=== PATIENT | female | born 1970 | race African-American/Black ===

== ENCOUNTER 2018-09-14 14:57 | Emergency (ER) | payer SELFPAY ==
[~2018-09-14] VITALS: Ht 154.9 cm; Wt 63.5 kg
--- NOTE | 2018-09-14 15:30 | NUR ---
ED Nurse Note: Pt walked in to ER as reporting a dog bite from [employer]. pt reported pain 5/10 pt aao x4. skin will be assessed when empty room is available.
[2018-09-14 15:43] VITALS: BP 155/96
[2018-09-14] MEDS ORDERED: Tetanus/Diptheria/Pertussis Vaccine 0.5ml Syr IM ONE (15:45)
--- NOTE | 2018-09-14 15:55 | NUR ---
ED Nurse Note: Rt thigh dog bite assessed. teeth bite and swallen noted but no drainage or bleeding noted.
--- NOTE | 2018-09-14 16:07 | Emergency Room Report ---
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 Patient reports that she was buying some dark fluid as a daughter was carried by [employer] employee attacked her and bit her on the right thigh. Incident happened today. Patient is rating the pain 7 out of 10, without radiation, benign tingling and numbness. He has not taken any medication for pain. Patient is not up-to-date on T data. Denies fever, chills, chest pain, SOB, palpitations, abdominal pain and all other associated symptoms. Denies any pus drainage from the site of injury. Allergies: Coded Allergies: No Known Allergies (Unverified , 09/14/18) Patient History Past Medical History: see triage record Past Surgical History: none Pertinent Family History: none Now: No Immunizations: other - Tdap today Reviewed Nursing Documentation: PMH: Agreed; PSxH: Agreed Nursing Documentation-PMH Past Medical History: No History, Except For Hx Hypertension: Yes Review of Systems All Other Systems: negative except mentioned in HPI Physical Exam Vital Signs Date Time Temp Pulse Resp B/P (MAP) Pulse Ox O2 Delivery O2 Flow Rate FiO2 09/14/18 15:08 98.4 90 16 155/96 99 Room Air Sp02 EP Interpretation: reviewed, normal General Appearance: normal inspection, well appearing Head: normocephalic, atraumatic Eyes: bilateral eye normal inspection, bilateral eye PERRL ENT: normal ENT inspection, normal pharynx Neck: normal inspection, supple Respiratory: normal inspection, lungs clear, no rhonchi Cardiovascular #1: normal inspection, regular rate, rhythm, no edema Gastrointestinal: normal inspection, soft Musculoskeletal: back normal, gait/station normal, other - dog bite right lateral thigh Neurologic: normal inspection, alert, oriented x3 Psychiatric: normal inspection Skin: other - dog bite with erythema on right thigh Lymphatic: normal inspection, no adenopathy Medical Decision Making PA Attestation all diagnosis and treatment plans were reviewed and discussed with my supervising physician Dr. 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 Patient reports that she was buying some dark fluid as a daughter was carried by [employer] employee attacked her and bit her on the right thigh. Incident happened today. Patient is rating the pain 7 out of 10, without radiation, benign tingling and numbness. He has not taken any medication for pain. Patient is not up-to-date on T data. Denies fever, chills, chest pain, SOB, palpitations, abdominal pain and all other associated symptoms. Denies any pus drainage from the site of injury. Ddx considered but are not limited to infected dog bite, cellulitis right thigh Vital signs: are WNL, pt. is afebrile H&PE are most consistent with infected dog bite ORDERS: wound clean, Tdap, augmentin, tylenol ED INTERVENTIONS: None required at this time. DISCHARGE: At this time pt. is stable for d/c to home. Will provide printed patient care instructions, and any necessary prescriptions. Care plan and follow up instructions have been discussed with the patient prior to discharge. f/u withpcp for further evaluation. if fever/chills return to ER Last Vital Signs Date Time Temp Pulse Resp B/P (MAP) Pulse Ox O2 Delivery O2 Flow Rate FiO2 09/14/18 15:43 98.4 71 16 155/96 99 Room Air Disposition: HOME, SELF-CARE Condition: Stable Scripts Acetaminophen* (TYLENOL EXTRA STRENGTH*) 500 Mg Tablet 500 MG ORAL Q6H PRN for Mild Pain/Temp > 100.5, #30 TAB 0 Refills Prov: Sandra Germain 09/14/18 Amoxicillin/Potassium Clav 875-125* (AUGMENTIN 875-125 TABLET*) 1 Each Tablet 1 TAB ORAL TWICE A DAY for 10 Days, #20 TAB Prov: Sandra Germain 09/14/18 Patient Instructions: Animal Bite, [id number] Additional Instructions: see primary Dr for follow up. if fever/chills return to ER. Sandra Germain Sep 14, 2018 16:07
[2018-09-14] MEDS ORDERED: TYLENOL EXTRA500 MG ORAL (16:08)
[2018-09-14] MEDS ORDERED: AUGMENTIN 875-1 EAC1 ORAL (16:08)
[2018-09-14 16:15] VITALS: BP 114/63
--- NOTE | 2018-09-14 16:15 | NUR ---
ER DISCHARGE NOTE: Patient is cleared to be discharged per ERPA, pt is aox4, on room air, accompanied by son, with stable vital signs. pt was given dc and prescription instructions, pt was able to verbalize understanding, pt id band removed. pt is able to ambulate with steady gait. pt took all belongings.
== END 2018-09-14 16:15 | disposition home or self-care (01) ==
LOC: EMR 15:40
DX: S71.151A Open bite, right thigh, initial encounter (principal); Z23 Encounter for immunization; I12.9 Hypertensive chronic kidney disease with stage 1 through stage 4 chronic kidney disease, or unspecified chronic kidney disease; N18.9 Chronic kidney disease, unspecified; W54.0XXA Bitten by dog, initial encounter; Y92.512 Supermarket, store or market as the place of occurrence of the external cause
CPT/HCPCS: 90471; 90715; 99282